=== PATIENT | male | born 1995 | race Caucasian/White ===

== ENCOUNTER 2022-02-12 22:16 | Emergency (ER) | payer BC, OTHER ==
[2022-02-12] MEDS ORDERED: Sodium Chloride 0.9% 1,000 ML IV ONE (22:29)
[2022-02-12] MEDS ORDERED: HYDROmorphone 1 MG/ML Syringe IVPUSH ONE (22:29)
[2022-02-12] MEDS ORDERED: Ondansetron 4 MG/2 ML SDV IVPUSH ONE (22:29)
[2022-02-12] MEDS ORDERED: Famotidine 20 MG/2 ML SDV IVPUSH ONE (22:30)
[2022-02-12 23:19] LABS: BLOOD UREA NITROGEN,BUN 18 mg/dL (7.0-18.0); CARBON DIOXIDE,CO2 27.3 mmol/L (21.0-32.0); CHLORIDE,CL 100 mmol/L (98-107); GLUCOSE RANDOM 99 mg/dL (74-106); LIPASE 47 U/L (73-393); POTASSIUM,K 3.9 mmol/L (3.5-5.1); SODIUM,NA 137 mmol/L (136-148)
[2022-02-12] MEDS ORDERED: Iopamidol 755 MG/ML 500 ML Multipack Bottle IVPUSH STA (23:47)
[2022-02-13] MEDS ORDERED: HYDROmorphone 1 MG/ML Syringe IVPUSH ONE (00:44)
[2022-02-13] MEDS ORDERED: Ondansetron 4 MG/2 ML SDV IVPUSH ONE (00:44)
== END 2022-02-13 01:40 | disposition home or self-care (01) ==
LOC: MW.ED 22:16
DX: R10.9 Unspecified abdominal pain (principal); Z20.822 Contact with and (suspected) exposure to COVID-19; Z88.2 Allergy status to sulfonamides; Z88.1 Allergy status to other antibiotic agents
CPT/HCPCS: 36415; 74177; 80053; 81003; 83605; 83690; 83735; 85025; 87635; 96374; 96375; 96376; 99284; J1170; J2405; J3490; J7030; Q9967; U0002